=== PATIENT | male | born 1935 | race Caucasian/White ===

== ENCOUNTER → 2017-02-03 | Outpatient (CLI) | payer MEDICARE | LOC: COL.RAD 10:28 | DX: D47.2 Monoclonal gammopathy (principal); M85.80 Other specified disorders of bone density and structure, unspecified site ==

== ENCOUNTER → 2017-03-17 | Outpatient (CLI) | payer MEDICARE | LOC: COL.RAD 09:37 | DX: R59.0 Localized enlarged lymph nodes (principal); N40.0 Benign prostatic hyperplasia without lower urinary tract symptoms | CPT/HCPCS: Q9967 ==

== ENCOUNTER 2017-09-23 11:15 | Outpatient (RCR) | payer MEDICARE ==
[2017-10-09] MEDS ORDERED: ZOVIRAX400 MG PO (16:20)
[2017-10-09] MEDS ORDERED: TAZTIA120 (16:20)
[2017-10-09] MEDS ORDERED: ATIVAN 1MG T1 MG/TAB PO (16:21)
[2017-10-09] MEDS ORDERED: PREDNISONE 5MG5 MG PO (16:21)
[2017-10-09] MEDS ORDERED: STIOLTO RESPIMAT4 GM IH (16:21)
[2017-10-09] MEDS ORDERED: ZOFRAN8 MG PO (16:22)
[2017-10-13] MEDS ORDERED: ASPIRIN 81M81 MG/TA2 PO (09:58)
[2017-10-13] MEDS ORDERED: IPRATROPIUM BROM3 M1 IH (15:33)
[2017-10-13] MEDS ORDERED: COMBIRESP IH (15:33)
[2017-10-13] MEDS ORDERED: PREDNISONE10 MG PO (15:33)
== END 2017-11-22 | disposition home or self-care (01) ==
LOC: MKS.ESL.PT
DX: R53.0 Neoplastic (malignant) related fatigue (principal); R53.1 Weakness; R06.02 Shortness of breath; C88.0 Waldenstrom macroglobulinemia
CPT/HCPCS: G8978-GP; G8979-GP

== ENCOUNTER 2017-10-09 14:29 | Emergency (ER) | payer MEDICARE ==
[~2017-10-09] VITALS: Ht 175.3 cm; Wt 72.7 kg
[2017-10-09 14:31] VITALS: TEMP 97.5
[2017-10-09 15:08] LABS: BASO % 0.1 % (0.0-2.0); EOS # 0.1 (0.0-0.7); EOS % 1.2 % (0-4.0); GRAN # 6.2 (1.4-6.5); GRAN % 71.4 % (42.2-75.2); HEMATOCRIT 43.1 % (42.0-52.0); HEMOGLOBIN 14.5 g/dl (13.5-18.0); LYMPH # 1.2 (1.2-3.4); LYMPH % 14.4 % (20.0-51.0); MEAN CELL VOLUME 96 fl (80.0-100.0); MEAN CORPUSCULAR HEMOGLOBIN 32 pg (27.0-31.0); MEAN CORPUSCULAR HGB CONC 34 g/dl (33.0-37.0); MEAN PLATELET VOLUME 9.9 fl (7.4-10.4); MONO # 1.1 (0.1-0.6); MONO % 12.3 % (1.7-9.3); PLATELET COUNT 298 K/mm3 (130-400); RED BLOOD COUNT 4.47 M/mm3 (4.20-5.60); REDCELL DISTRIBUTION WIDTH-CV 13.6 % (11.5-14.5)
[2017-10-09 15:16] LABS: PROTHROMBIN TIME 11.2 SECONDS (9.7-12.8)
[2017-10-09 15:18] LABS: PARTIAL THROMBOPLASTIN TIME 28.8 SECONDS (26.0-37.0)
[2017-10-09 15:20] LABS: ALANINE AMINOTRANSFERASE 32 U/L (21-72); ALBUMIN 3.6 gm/dL (3.5-5.0); ALKALINE PHOSPHATASE 85 U/L (50-136); ANION GAP 8 mmol/L (7-16); AST,SGOT 23 U/L (15-37); BILIRUBIN,TOTAL 0.8 mg/dL (0.0-1.0); BLOOD UREA NITROGEN 21 mg/dL (9-20); CALCIUM 9.8 mg/dL (8.4-10.2); CARBON DIOXIDE 30 mmol/L (22-30); CHLORIDE 99 mmol/L (98-107); CREATININE, serum 1.17 mg/dL (0.66-1.25); GLUCOSE 90 mg/dL (74-106); POTASSIUM 4.1 mmol/L (3.4-5.0); SODIUM 137 mmol/L (137-145); TOTAL PROTEIN 8.1 gm/dL (6.4-8.2)
[2017-10-09 15:31] LABS: TROPONIN-I < 0.012 ng/mL (0.000-0.034)
[2017-10-09 15:38] LABS: ARTERIAL BLD GAS O2 SATURATION 95.4 % (92-100); ARTERIAL BLD GAS TCO2 CT 24.9; ARTERIAL BLOOD GAS BASE EXCESS 1.1 (-2-2); ARTERIAL BLOOD GAS HCO3 23.9 meq/L (22-26); ARTERIAL BLOOD GAS PCO2 32.8 mmHg (35-45); ARTERIAL BLOOD GAS PO2 79.3 mmHg (80-100); ARTERIAL BLOOD GAS pH 7.48 (7.35-7.45)
[2017-10-09] MEDS ORDERED: ZOVIRAX400 MG PO (16:20)
[2017-10-09] MEDS ORDERED: TAZTIA120 (16:20)
[2017-10-09] MEDS ORDERED: ATIVAN 1MG T1 MG/TAB PO (16:21)
[2017-10-09] MEDS ORDERED: PREDNISONE 5MG5 MG PO (16:21)
[2017-10-09] MEDS ORDERED: STIOLTO RESPIMAT4 GM IH (16:21)
[2017-10-09] MEDS ORDERED: ZOFRAN8 MG PO (16:22)
[2017-10-09 16:56] VITALS: BP 121/73; PULSE 65
== END 2017-10-09 16:57 | disposition home or self-care (01) ==
LOC: COL.ER 14:29
PROVIDERS: Family Medicine
DX: J44.9 Chronic obstructive pulmonary disease, unspecified (principal)
CPT/HCPCS: J2930

== ENCOUNTER 2017-10-13 09:49 | Emergency (ER) | payer MEDICARE ==
[~2017-10-13] VITALS: Ht 175.3 cm; Wt 72.7 kg
[~2017-10-13 09:49] MED LIST: ATIVAN 1MG T1 MG/TAB PO; PREDNISONE 5MG5 MG PO; STIOLTO RESPIMAT4 GM IH; TAZTIA120; ZOFRAN8 MG PO; ZOVIRAX400 MG PO
[2017-10-13 09:55] VITALS: TEMP 97.2
[2017-10-13] MEDS ORDERED: ASPIRIN 81M81 MG/TA2 PO (09:58)
[2017-10-13 10:30] LABS: BASO % 0.2 % (0.0-2.0); EOS # 0.1 (0.0-0.7); EOS % 0.9 % (0-4.0); GRAN % 71.2 % (42.2-75.2); HEMATOCRIT 43.3 % (42.0-52.0); HEMOGLOBIN 14.2 g/dl (13.5-18.0); LYMPH # 1.7 (1.2-3.4); LYMPH % 17.1 % (20.0-51.0); MEAN CELL VOLUME 98 fl (80.0-100.0); MEAN CORPUSCULAR HEMOGLOBIN 32 pg (27.0-31.0); MEAN CORPUSCULAR HGB CONC 33 g/dl (33.0-37.0); MEAN PLATELET VOLUME 9.3 fl (7.4-10.4); MONO % 9.6 % (1.7-9.3); PLATELET COUNT 408 K/mm3 (130-400); RED BLOOD COUNT 4.43 M/mm3 (4.20-5.60); REDCELL DISTRIBUTION WIDTH-CV 13.7 % (11.5-14.5)
[2017-10-13 10:36] LABS: PROTHROMBIN TIME 11.8 SECONDS (9.7-12.8)
[2017-10-13 10:39] LABS: PARTIAL THROMBOPLASTIN TIME 30.5 SECONDS (26.0-37.0)
[2017-10-13 10:48] LABS: ALANINE AMINOTRANSFERASE 26 U/L (21-72); ALBUMIN 3.6 gm/dL (3.5-5.0); ALKALINE PHOSPHATASE 86 U/L (50-136); ANION GAP 11 mmol/L (7-16); AST,SGOT 21 U/L (15-37); BILIRUBIN,TOTAL 0.5 mg/dL (0.0-1.0); BLOOD UREA NITROGEN 21 mg/dL (9-20); CALCIUM 9.8 mg/dL (8.4-10.2); CARBON DIOXIDE 28 mmol/L (22-30); CHLORIDE 100 mmol/L (98-107); CREATININE, serum 1.27 mg/dL (0.66-1.25); GLUCOSE 123 mg/dL (74-106); LIPASE 72 U/L (23-300); POTASSIUM 3.6 mmol/L (3.4-5.0); SODIUM 139 mmol/L (137-145); TOTAL PROTEIN 7.7 gm/dL (6.4-8.2)
[2017-10-13 10:52] LABS: TROPONIN-I < 0.012 ng/mL (0.000-0.034)
[2017-10-13] MEDS ORDERED: IPRATROPIUM BROM3 M1 IH (15:33)
[2017-10-13] MEDS ORDERED: PREDNISONE10 MG PO (15:33)
[2017-10-13] MEDS ORDERED: COMBIRESP IH (15:33)
[2017-10-13 16:14] VITALS: BP 147/89; PULSE 83
== END 2017-10-13 16:35 | disposition other institution (70) ==
LOC: COL.ER 09:49
PROVIDERS: Emergency Medicine
DX: J44.1 Chronic obstructive pulmonary disease with (acute) exacerbation (principal); I48.91 Unspecified atrial fibrillation; C85.90 Non-Hodgkin lymphoma, unspecified, unspecified site; Z79.82 Long term (current) use of aspirin
CPT/HCPCS: J2930; J7030; Q9967

== ENCOUNTER 2017-10-21 09:13 | Emergency (ER) | payer MEDICARE ==
[~2017-10-21] VITALS: Ht 175.3 cm; Wt 72.7 kg
[~2017-10-21 09:13] MED LIST changes: +ASPIRIN 81M81 MG/TA2 PO; +COMBIRESP IH; +IPRATROPIUM BROM3 M1 IH; +PREDNISONE10 MG PO
[2017-10-21 12:51] VITALS: BP 126/98; PULSE 90; TEMP 98.5
== END 2017-10-21 13:00 | disposition home or self-care (01) ==
LOC: COL.ER 09:13
DX: J44.1 Chronic obstructive pulmonary disease with (acute) exacerbation (principal); I48.91 Unspecified atrial fibrillation; Z79.82 Long term (current) use of aspirin; Z85.72 Personal history of non-Hodgkin lymphomas

== ENCOUNTER → 2017-11-01 | Outpatient (CLI) | payer MEDICARE | LOC: COL.VAS 13:15 | DX: R22.42 Localized swelling, mass and lump, left lower limb (principal); D47.2 Monoclonal gammopathy ==

== ENCOUNTER → 2018-07-07 | Outpatient (CLI) | payer MEDICARE ==
[~2018-07-07] MED LIST changes: +ACULAR 5 ML5 ML OD; +FLOXIN OTIC DROP5 ML OD; +OMNICEF 300MG300 MG PO; +PERFOROMIS20 MCG/2 M IH; +PREDFORTE5ML OS; +PREDNISONE20 MG PO; +PULMICORT180 MCG/Ac IH; +SENOKOT S 50 MG1 TAB PO; +ZITHROMAX Z PA250 MG PO; +ZITHROMAX500 M2 PO
[2018-07-07 14:44] LABS: ARTERIAL BLD GAS O2 SATURATION 95.4 % (92-100); ARTERIAL BLD GAS TCO2 CT 25.7; ARTERIAL BLOOD GAS BASE EXCESS 2.1 (-2-2); ARTERIAL BLOOD GAS HCO3 24.7 meq/L (22-26); ARTERIAL BLOOD GAS PCO2 32.7 mmHg (35-45); ARTERIAL BLOOD GAS PO2 75.4 mmHg (80-100)
== END ==
LOC: COL.PUL 14:04
PROVIDERS: Internal Medicine Pulmonary Disease
DX: R06.02 Shortness of breath (principal)

== ENCOUNTER → 2018-07-24 | Outpatient (CLI) | payer MEDICARE | LOC: COL.RAD 13:14 | DX: J44.9 Chronic obstructive pulmonary disease, unspecified (principal) ==

== ENCOUNTER 2019-03-13 07:00 | Day surgery (SDC) | payer MEDICARE ==
[2019-03-13] VITALS (11 sets, daily range): BP systolic 100–136; BP diastolic 51–98; PULSE 47–84; TEMP 97.2–99.2
[~2019-03-13] VITALS: Ht 175.3 cm; Wt 67.2 kg
[~2019-03-13 07:00] MED LIST changes: -TAZTIA120; +TAZTIA120 PO
[2019-03-13] MEDS ORDERED: TRELEGY ELLIPT1 EACH IH (07:27)
[2019-03-13] MEDS ORDERED: GENTAMICIN I40 MG/ML NAS (07:28)
[2019-03-13] MEDS ORDERED: IPRATROPIUM BROM3 M1 IH (07:32)
--- NOTE | 2019-03-13 11:30 | NUR ---
Patient is to the floor from surgery. His is with him. He denies pain and nausea. Oriented patient and family to room. Patients urine is yellow and clear, no clots or blood noted. CBI came up with patient at a slow rate. Explained how the food delivery service works. Patient is on oxygen at 3l/min. He stated he wears it at night when he sleeps. No other changes at this time. Call light within reach.
--- NOTE | 2019-03-13 19:20 | NUR ---
Patient had some pain earlier after his spinal wore off. He also started having more blood and clots in his urine. Irrigated to make sure there was no clots, had a few small clots returned. His urine continues to be red to light pink. He denies spasms or pain to his bladder. He stated having some burning to his penis. Ramires is secured and a few clots are in the bag at this time. Patient is drinking fluids and doing well otherwise. He is up walking with Frances the WELFARE SERVICE AIDE. No other changes at this time. Call light within reach.
--- NOTE | 2019-03-13 21:50 | NUR ---
REPORT RECEIVED BY DAY SHIFT NURSE, ARCELIA DEWEY. CBI RATE MODERATE WITH CEDILLO OUTPUT LIGHT RED WITH SMALL AMOUNT OF SEDIMENT OBSERVED IN DD TUBING WITH NO CLOTS OBSERVED. PATIENT REPORTS BURNING DISCOMFORT TO END OF PENIS AND DENIES RECTAL PRESSURE, BLADDER PRESSURE OR SHARP PAIN TO END OF PENIS CURRENTLY. DENIES NAUSEA/DIZZINESS WHEN UP FOR AMBULATING. RESTING IN BED WITH CALL LIGHT WITHIN PATIENT'S REACH.
[2019-03-14 04:07] VITALS: BP 109/74; PULSE 66; TEMP 98.8
--- NOTE | 2019-03-14 06:30 | NUR ---
DR DOWELL CALLED FOR PATIENT'S STATUS UPDATE, ORDERS GIVEN TO INSTILL 300ML CBI SOLUTION AND REMOVE CATHETER AND FOLLOW 6 CUP ROUTINE FOR VOIDING AND TO EXPECT DOCTOR TO ROUND AROUND LUNCH. INFORMED PATIENT OF DR BAUTISTA TO INSTILL CBI SOLUTION AND REMOVE CATHETER AND WHEN TO EXPECT DR DOWELL FOR ROUNDS. NO OTHER NEEDS REPORTED.
--- NOTE | 2019-03-14 07:00 | NUR ---
REPORT GIVEN TO DAY SHIFT NURSERAUL RN. PATIENT WITH NO COMPLAINTS OR NEEDS REPORTED. CALL LIGHT/WATER WITHIN PATIENT'S REACH.
[2019-03-14 07:32] VITALS: BP 105/64; PULSE 77; TEMP 97.7
--- NOTE | 2019-03-14 09:55 | NUR ---
Patient independent in room. 6 bottle routine started. voided x2 pink tinged output. tolerated pack prime & removal well. Int. tolerating diet. continues with home cpod medication regiment, he brought from home. Ricardo villalobos
--- NOTE | 2019-03-14 10:41 | NUR ---
Initial visit; Patient thanked Lockstitch Binder for looking in on him and offering Spiritual Care. Patient expressed how well he has been taken care of here at our hospital and expressed how impressed he is with the professionalism he has experienced with the entire staff.
--- NOTE | 2019-03-14 11:14 | NUR ---
Language Pathologist met with patient to discuss discharge planning. Patient lives in [place] with his , Jack (ph#[phone]). Yasmeen sees Dr. Talamantes for primary care and obtains medications from [facility] with no difficulties. Patient has oxygen needs met by [employer] and reports he has an oxygen generator at home. Patient is independent with ADLS. Patient has Advance Directives complete but does not have copy on file at this hospital. Patient plans to return home upon discharge.
[2019-03-14 11:31] VITALS: BP 152/89; PULSE 58; TEMP 97.6
--- NOTE | 2019-03-14 12:46 | NUR ---
Patient ready for discharge. Dr. Tamayo rounded. Orders obtained. He continues to void light pink urine without difficulty. He did well with lunch, denies pain. Iv DC. Discharge paperwork reviewed. Home med list discussed with last dose taken. Diet & activity discussed. to take him home. Deny questions and concerns.
--- NOTE | 2019-03-14 13:37 | NUR ---
PATIENT WHEELED OUT WITH ALL BELONGINGS.
== END 2019-03-14 13:38 | disposition home or self-care (01) ==
LOC: SDCO 07:00 → SURG 11:18 → SDCO 03-14 13:38
DX: N40.1 Benign prostatic hyperplasia with lower urinary tract symptoms (principal); N13.8 Other obstructive and reflux uropathy; R33.8 Other retention of urine; N21.0 Calculus in bladder; I48.91 Unspecified atrial fibrillation; Z79.82 Long term (current) use of aspirin; Z79.899 Other long term (current) drug therapy; Z85.828 Personal history of other malignant neoplasm of skin; E78.00 Pure hypercholesterolemia, unspecified; Z87.891 Personal history of nicotine dependence; F32.9 Major depressive disorder, single episode, unspecified; Z85.72 Personal history of non-Hodgkin lymphomas; Z80.9 Family history of malignant neoplasm, unspecified; Z82.49 Family history of ischemic heart disease and other diseases of the circulatory system; C88.0 Waldenstrom macroglobulinemia; J43.9 Emphysema, unspecified
CPT/HCPCS: OP; A9284; J0690; J2250; J2704; J3010; J7120

== ENCOUNTER → 2019-06-18 | Outpatient (CLI) | payer MEDICARE ==
[~2019-06-18] MED LIST changes: +GENTAMICIN I40 MG/ML NAS; +TRELEGY ELLIPT1 EACH IH
== END ==
LOC: COL.RAD 11:07
DX: Z01.818 Encounter for other preprocedural examination (principal); J44.9 Chronic obstructive pulmonary disease, unspecified
CPT/HCPCS: A9540

== ENCOUNTER → 2020-06-05 | Outpatient (CLI) | payer MEDICARE ==
[2020-06-05 07:41] LABS: ARTERIAL BLOOD GAS BASE EXCESS 1.5 (-2-2); ARTERIAL BLOOD GAS HCO3 25.6 meq/L (22-26); ARTERIAL BLOOD GAS PCO2 38.7 mmHg (35-45); ARTERIAL BLOOD GAS PO2 96.1 mmHg (80-100); ARTERIAL BLOOD GAS pH 7.44 (7.35-7.45)
[2020-06-05 07:42] LABS: ARTERIAL BLD GAS O2 SATURATION 97.7 % (92-100); ARTERIAL BLD GAS TCO2 CT 26.8
== END ==
LOC: COL.PUL 06:52
PROVIDERS: Internal Medicine Pulmonary Disease
DX: J44.9 Chronic obstructive pulmonary disease, unspecified (principal)

== ENCOUNTER 2020-09-01 14:00 | Outpatient (RCR) | payer MEDICARE | END 2020-09-01 17:33 | disposition home or self-care (01) | LOC: MKS.ESL.PT 14:00 | DX: J44.9 Chronic obstructive pulmonary disease, unspecified (principal); Z99.81 Dependence on supplemental oxygen ==

== ENCOUNTER 2022-06-03 11:50 | Emergency (ER) | payer MEDICARE ==
[~2022-06-03] VITALS: Ht 175.3 cm; Wt 68.2 kg
[2022-06-03 12:00] VITALS: TEMP 98.1
[2022-06-03 12:24] LABS: BASO # 0.1 K/mm3 (0.0-0.2); BASO % 0.4 % (0.0-2.0); EOS # 0.1 K/mm3 (0.0-0.7); EOS % 0.9 % (0.0-4.0); GRAN # 9.1 K/mm3 (1.4-6.5); GRAN % 67.3 % (42.2-75.2); HEMATOCRIT 49.9 % (42.0-52.0); HEMOGLOBIN 15.7 g/dl (13.5-18.0); LYMPH % 22.4 % (20.0-51.0); MEAN CELL VOLUME 101 fl (80.0-100.0); MEAN CORPUSCULAR HEMOGLOBIN 32 pg (27-31); MEAN CORPUSCULAR HGB CONC 32 g/dl (33.0-37.0); MEAN PLATELET VOLUME 9.4 fl (7.4-10.4); MONO # 1.2 K/mm3 (0.1-0.6); MONO % 8.6 % (1.7-9.3); PLATELET COUNT 405 K/mm3 (130-400); RED BLOOD COUNT 4.96 M/mm3 (4.20-5.60); REDCELL DISTRIBUTION WIDTH-CV 12.3 % (11.5-14.5)
[2022-06-03 12:25] LABS: INR 1.4 (0.8-3.0)
[2022-06-03 12:44] LABS: ALANINE AMINOTRANSFERASE 51 U/L (0-55); ALBUMIN 4.3 gm/dL (3.4-4.8); ALKALINE PHOSPHATASE 76 U/L (40-150); ANION GAP 13 mmol/L (7-16); AST,SGOT 29 U/L (5-34); BLOOD UREA NITROGEN 19 mg/dL (8-26); CALCIUM 11.1 mg/dL (8.4-10.2); CARBON DIOXIDE 27 mmol/L (23-31); CHLORIDE 103 mmol/L (98-107); CREATININE, serum 1.26 mg/dL (0.72-1.25); GLUCOSE 98 mg/dL (70-99); POTASSIUM 4.5 mmol/L (3.5-4.5); SODIUM 143 mmol/L (136-145); TOTAL PROTEIN 8.8 gm/dL (6.2-8.1)
[2022-06-03 12:47] LABS: TROPONIN-I < 0.010 ng/mL (0.00-0.033)
[2022-06-03] MEDS ORDERED: AMOXICILLIN 8751 TAB PO (13:50)
[2022-06-03 14:03] LABS: BILIRUBIN,TOTAL 1.1 mg/dL (0.2-1.2)
[2022-06-03 14:59] VITALS: BP 119/83; PULSE 86
== END 2022-06-03 15:00 | disposition home or self-care (01) ==
LOC: COL.ER 11:50
PROVIDERS: Physician Assistant
DX: J44.0 Chronic obstructive pulmonary disease with (acute) lower respiratory infection (principal); J18.9 Pneumonia, unspecified organism; J44.1 Chronic obstructive pulmonary disease with (acute) exacerbation; R00.2 Palpitations; I48.0 Paroxysmal atrial fibrillation; D72.829 Elevated white blood cell count, unspecified; Z79.01 Long term (current) use of anticoagulants; Z86.16 Personal history of COVID-19; Z99.81 Dependence on supplemental oxygen

== ENCOUNTER → 2023-02-08 | Outpatient (RCR) | payer MEDICARE ==
[~2023-02-08] MED LIST changes: +AMOXICILLIN 8751 TAB PO; +ELIQUIS 2.5 PO; +K-DUR 10 MEQ T10 MEQ; +LASIX 20MG TABL20 MG PO; +OXY IR5 MG PO
== END | disposition home or self-care (01) ==
LOC: COL.CR
DX: J44.9 Chronic obstructive pulmonary disease, unspecified (principal)

== ENCOUNTER 2023-03-15 13:00 | Outpatient (RCR) | payer MEDICARE | END 2023-04-10 | disposition home or self-care (01) | LOC: COL.CR | DX: J44.9 Chronic obstructive pulmonary disease, unspecified (principal) ==

== ENCOUNTER 2023-04-14 08:51 | Emergency (ER) | payer MEDICARE ==
[~2023-04-14] VITALS: Ht 175.3 cm; Wt 65.9 kg
[2023-04-14 10:30] VITALS: BP 160/93; PULSE 93
== END 2023-04-14 10:37 | disposition home or self-care (01) ==
LOC: COL.ER 08:51
DX: R04.0 Epistaxis (principal); I48.91 Unspecified atrial fibrillation; Z79.02 Long term (current) use of antithrombotics/antiplatelets; Z79.01 Long term (current) use of anticoagulants; Z99.81 Dependence on supplemental oxygen; Z87.891 Personal history of nicotine dependence

== ENCOUNTER 2023-04-18 10:22 | Emergency (ER) | payer MEDICARE ==
[~2023-04-18] VITALS: Ht 175.3 cm; Wt 65.9 kg
[2023-04-18 10:24] VITALS: TEMP 97.8
[2023-04-18] MEDS ORDERED: Albuterol 0.083% Neb Soln 2.5 MG/3 ML UD IH ONE (11:15)
[2023-04-18] MEDS ORDERED: Albuterol/Ipratropium 3 MG-0.5 MG/3 ML Neb Soln IH SCH (11:15)
[2023-04-18] MEDS ORDERED: dexAMETHasone 4 MG TAB PO ONE (11:15)
[2023-04-18 11:48] LABS: BASO % 0.2 % (0.0-2.0); EOS % 0.1 % (0.0-4.0); GRAN % 87.9 % (42.2-75.2); HEMOGLOBIN 12.8 g/dl (13.5-18.0); LYMPH # 0.8 K/mm3 (1.2-3.4); MEAN CELL VOLUME 98 fl (80.0-100.0); MEAN CORPUSCULAR HEMOGLOBIN 31 pg (27-31); MEAN CORPUSCULAR HGB CONC 32 g/dl (33.0-37.0); MEAN PLATELET VOLUME 9.4 fl (7.4-10.4); MONO # 1.4 K/mm3 (0.1-0.6); MONO % 7.3 % (1.7-9.3); PLATELET COUNT 314 K/mm3 (130-400); RED BLOOD COUNT 4.07 M/mm3 (4.20-5.60); REDCELL DISTRIBUTION WIDTH-CV 12.6 % (11.5-14.5)
[2023-04-18 12:05] LABS: ALANINE AMINOTRANSFERASE 18 U/L (0-55); ALBUMIN 3.6 gm/dL (3.4-4.8); ALKALINE PHOSPHATASE 75 U/L (40-150); ANION GAP 10 mmol/L (7-16); AST,SGOT 19 U/L (5-34); BILIRUBIN,TOTAL 0.5 mg/dL (0.2-1.2); BLOOD UREA NITROGEN 20 mg/dL (8-26); CALCIUM 10.5 mg/dL (8.4-10.2); CARBON DIOXIDE 25 mmol/L (23-31); CHLORIDE 105 mmol/L (98-107); CREATININE, serum 1.07 mg/dL (0.72-1.25); GLUCOSE 101 mg/dL (70-99); SODIUM 140 mmol/L (136-145); TOTAL PROTEIN 7.4 gm/dL (6.2-8.1)
[2023-04-18 12:13] LABS: TROPONIN-I < 0.010 ng/mL (0.00-0.033)
[2023-04-18] MEDS ORDERED: AMOXICILLIN 8751 TAB PO (13:12)
[2023-04-18] MEDS ORDERED: PREDNISONE20 MG PO (13:12)
[2023-04-18] MEDS ORDERED: ZITHROMAX Z PA250 MG PO (13:12)
[2023-04-18 15:43] VITALS: BP 122/93; PULSE 93
--- NOTE | 2023-04-18 16:33 | NUR ---
Embossing Toolsetter met with patient and his , Jack at bedside as they are concerned about patient returning home from the ED today. Jack advised they live in Independent Living apartment at [facility] and that they spoke with Jaymie Art at [facility] about going to [facility] for a skilled stay, however they are full. Patient has a walker available at home and has home oxygen set up through [employer]. ED Physician is at bedside and advised patient does not meet admission criteria. VELASQUEZ advised options are SNF at another facility or home with Home Health services. Patient is agreeable to services with [facility]. VELASQUEZ contacted Castillo at [facility] and faxed referral. VELASQUEZ provided update to MACO Wagner-CM at [facility] and Jaymie at [facility]. VELASQUEZ provided [facility] Transport's number to patient for a ride home.
== END 2023-04-18 15:44 | disposition home or self-care (01) ==
LOC: COL.ER 10:22
PROVIDERS: Emergency Medicine
DX: R04.0 Epistaxis (principal); J44.1 Chronic obstructive pulmonary disease with (acute) exacerbation; E87.5 Hyperkalemia; D72.829 Elevated white blood cell count, unspecified; I48.91 Unspecified atrial fibrillation; Z79.01 Long term (current) use of anticoagulants; Z99.81 Dependence on supplemental oxygen; Z79.899 Other long term (current) drug therapy; Z87.891 Personal history of nicotine dependence
CPT/HCPCS: J8540

== ENCOUNTER 2023-05-11 14:56 | Emergency (ER) | payer MEDICARE ==
[~2023-05-11] VITALS: Ht 177.8 cm; Wt 65.9 kg
[2023-05-11 14:58] VITALS: TEMP 96.1
[2023-05-11 15:43] LABS: BASO % 0.3 % (0.0-2.0); GRAN # 10.9 K/mm3 (1.4-6.5); GRAN % 73.4 % (42.2-75.2); LYMPH # 2.8 K/mm3 (1.2-3.4); LYMPH % 19.2 % (20.0-51.0); MEAN CELL VOLUME 97 fl (80.0-100.0); MEAN CORPUSCULAR HEMOGLOBIN 32 pg (27-31); MEAN CORPUSCULAR HGB CONC 33 g/dl (33.0-37.0); MEAN PLATELET VOLUME 9.4 fl (7.4-10.4); MONO % 6.8 % (1.7-9.3); PLATELET COUNT 400 K/mm3 (130-400); RED BLOOD COUNT 4.44 M/mm3 (4.20-5.60); REDCELL DISTRIBUTION WIDTH-CV 12.4 % (11.5-14.5)
[2023-05-11 15:44] LABS: INR 1.2 (0.8-3.0); PROTHROMBIN TIME 12.7 SECONDS (9.7-12.8)
[2023-05-11 15:56] LABS: CALCIUM 10.9 mg/dL (8.4-10.2); CREATININE, serum 1.4 mg/dL (0.72-1.25); TOTAL PROTEIN 7.9 gm/dL (6.2-8.1)
[2023-05-11 16:43] LABS: BILIRUBIN,TOTAL 0.6 mg/dL (0.2-1.2)
[2023-05-11 17:00] VITALS: BP 126/87; PULSE 89
== END 2023-05-11 18:47 | disposition home or self-care (01) ==
LOC: COL.ER 14:56
PROVIDERS: Family Medicine
DX: R04.0 Epistaxis (principal); I48.91 Unspecified atrial fibrillation; E87.5 Hyperkalemia; Z79.01 Long term (current) use of anticoagulants; Z87.891 Personal history of nicotine dependence

== ENCOUNTER 2023-09-29 13:27 | Inpatient (IN) | payer MEDICARE ==
[~2023-09-29] VITALS: Ht 175.3 cm; Wt 65.8 kg
[~2023-09-29 13:27] MED LIST changes: -ELIQUIS 2.5 PO; +ELIQUIS 5MG PO; -K-DUR 10 MEQ T10 MEQ; +K-DUR 10 MEQ T10 MEQ PO
[2023-09-29] MEDS ORDERED: Albuterol/Ipratropium 3 MG-0.5 MG/3 ML Neb Soln IH ONE ×2 (13:45→20:15)
[2023-09-29 13:54] LABS: BASO % 0.3 % (0.0-2.0); EOS % 0.1 % (0.0-4.0); GRAN # 11.3 K/mm3 (1.4-6.5); GRAN % 86.6 % (42.2-75.2); HEMATOCRIT 46.8 % (42.0-52.0); LYMPH % 7.6 % (20.0-51.0); MEAN CELL VOLUME 92 fl (80.0-100.0); MEAN CORPUSCULAR HEMOGLOBIN 29 pg (27-31); MEAN CORPUSCULAR HGB CONC 32 g/dl (33.0-37.0); MEAN PLATELET VOLUME 9.1 fl (7.4-10.4); MONO # 0.6 K/mm3 (0.1-0.6); MONO % 4.8 % (1.7-9.3); PLATELET COUNT 320 K/mm3 (130-400); RED BLOOD COUNT 5.11 M/mm3 (4.20-5.60); REDCELL DISTRIBUTION WIDTH-CV 14.1 % (11.5-14.5)
[2023-09-29 14:17] LABS: ALANINE AMINOTRANSFERASE 18 U/L (0-55); ALBUMIN 3.6 g/dL (3.4-4.8); ALKALINE PHOSPHATASE 74 U/L (40-150); ANION GAP 11 mmol/L (7-16); AST,SGOT 15 U/L (5-34); BLOOD UREA NITROGEN 16 mg/dL (8-26); CHLORIDE 105 mEq/L (98-107); CREATININE, serum 1.21 mg/dL (0.72-1.25); GLUCOSE 127 mg/dL (70-99); POTASSIUM 4.7 mEq/L (3.5-4.5); SODIUM 140 mEq/L (136-145); TOTAL PROTEIN 7.1 g/dl (6.2-8.1)
[2023-09-29 14:20] LABS: INR 1.2 (0.8-3.0); PROTHROMBIN TIME 12.6 SECONDS (9.7-12.8)
[2023-09-29 14:22] LABS: TROPONIN-I 0.073 ng/mL (0.00-0.033)
[2023-09-29] MEDS ORDERED: PREDNISONE10 MG PO (14:49)
[2023-09-29] MEDS ORDERED: YUPELRI175 MCG/3 INH (14:54)
[2023-09-29] MEDS ORDERED: PULMICORT0.5 MG/2 M IH (14:54)
[2023-09-29] MEDS ORDERED: BROVANA15 MCG/2 M INH (14:54)
[2023-09-29 15:13] LABS: BILIRUBIN,TOTAL < 1.0 mg/dL (0.2-1.2)
[2023-09-29 17:03] VITALS: BP 160/110; PULSE 82; TEMP 97.6
[2023-09-29] MEDS ORDERED: LASIX 20MG TABL20 MG PO (17:06)
[2023-09-29] MEDS ORDERED: Acetaminophen 325 MG TAB PO PRN (17:15)
[2023-09-29] MEDS ORDERED: Albuterol/Ipratropium 3 MG-0.5 MG/3 ML Neb Soln IH PRN (17:15)
[2023-09-29] MEDS ORDERED: Ondansetron 4 MG/2 ML VIAL IV PRN (17:15)
--- NOTE | 2023-09-29 17:37 | NUR ---
Pt arrived to medical floor from ED. Report received from ED RN Pat by phone. Admission assessment and intake completed. Pt is resting in bed awake, alert and oriented x4. Pt is having complaints of SOA. O2 in place at 2L NC with pt purse lip breathing. Pt states that when having to answer questions he becomes more short of breath. Home medications not reviewed at this time as pt is unaware of medication times and doses, is to bring in list tomorrow AM. Minor scabs noted to be scattered along BUE. Bilateral feet scaling/dry and cool to touch. Oriented pt to room, call light, and bathroom. Pt denies pain rating 0/10. Telemetry in place. Dr. Wise at bedside with patient and notified of BP 160/110 and critcal troponin of 0.435. Pt has no request at this time. Call light within reach.
[2023-09-29] MEDS ORDERED: methylPREDNISolone Sod Succ 125 MG/2 ML VIAL IV ONE (17:45)
[2023-09-29] MEDS ORDERED: hydrALAZINE 20 MG/ML 1 ML VIAL IV PRN ×2 (18:00)
[2023-09-29] MEDS ORDERED: Albuterol/Ipratropium 3 MG-0.5 MG/3 ML Neb Soln IH SCH (19:00)
[2023-09-29] MEDS ORDERED: Formoterol Neb Soln 20 MCG/2 ML UD IH SCH (19:00)
[2023-09-29] MEDS ORDERED: Arformoterol 15 MCG **** subs to Formoterol 20 MCG IH SCH (19:00)
[2023-09-29 19:14] LABS: ARTERIAL BLD GAS TCO2 CT 22.6; ARTERIAL BLOOD GAS BASE EXCESS -3.3 (-2-2); ARTERIAL BLOOD GAS HCO3 21.4 meq/L (22-26); ARTERIAL BLOOD GAS PCO2 37.9 mmHg (35-45); ARTERIAL BLOOD GAS pH 7.37 (7.35-7.45)
[2023-09-29 19:15] LABS: ARTERIAL BLOOD GAS PO2 402.5 mmHg (80-100)
[2023-09-29] MEDS ORDERED: Amiodarone 450 MG in D5W Excel 250 ML IV SCH (19:15)
[2023-09-29] MEDS ORDERED: LORazepam 2 MG/ML 1 ML VIAL SQ PRN (19:30)
[2023-09-29] MEDS ORDERED: Morphine 4 MG/ML VIAL IV ONE ×2 (19:30→19:45)
[2023-09-29] MEDS ORDERED: Scopolamine 1 MG Delivered 3-Day PATCH TD SCH (19:30)
[2023-09-29] MEDS ORDERED: Morphine 4 MG/ML VIAL IV PRN (19:30)
[2023-09-29] MEDS ORDERED: Carboxymethylcellulose PF Ophth 0.4 ML DROPPERETTE OP PRN (19:30)
[2023-09-29] MEDS ORDERED: Morphine Oral Concentrate 20 MG/ML UD SL PRN (19:30)
[2023-09-29] MEDS ORDERED: LORazepam 2 MG/ML 1 ML VIAL IV PRN (19:30)
--- NOTE | 2023-09-29 19:58 | NUR ---
Approximately 1830 [facility] Alejandra notified this nurse that pt was having increased SOA. This nurse assessed pt and pt was having rapid breathes with retractions. O2 sat was 96% on 2L NC but given that patient was using pursed lip breathing stating he felt he could not breath this nurse tried a oxymask at 2L. Oxymask was unsuccessful then pt was switched back to 2L NC. Pt heart rate was ranging approximately from 140s-160. Charge nurse Estee was at bedside and instructed this nurse to call RT for assistance. RT Melonie was notified by phone and came to intiate interventions with Duoneb treatment. Pt stated that he did not feel the duoneb treatment was helping and this nurse called a CAT call to ICU. Two ICU charge nurses came to bedside with RT and Dr. Wise and medical charge nurses Chacha and Estee. Dr. Wise ordered medical interventions and pt stated "Kill me". Dr. Wise then discussed comfort care measures and pt was agreeable. Pt notified by phone of pt condition. Interventions discontinued and pt now on comfort care with at bedside.
--- NOTE | 2023-09-29 20:30 | NUR ---
PT COMFORTABLE RESTING IN BED, UNLABORED RESPR AT THIS TIME. PT GIVEN MEDICATIONS FOR COMFORT PER ORDERS. OF PATIENT IS VERY ANXIOUS, ASKING A LOT OF QUESTIONS. WHEN I ASKED THE PT IF I COULD CLEAN HIM UP HE YELLED AT ME "I WANT TO , WOULD YOU JUST GIVE ME THE SHOT AND PUT ME OUT", FROM WHAT I UNDERSTOOD HE WAS SPEAKING OF [place] AND PT WAS EDUCATED THAT WAS NOT LEGAL IN [place], PT THEN CLOSED HIS EYES AND ASKED TO BE LEFT ALONE. I RESPECTED HIS WISHES.
[2023-09-29] MEDS ORDERED: Apixaban 5 MG TABLET PO SCH (21:00)
[2023-09-29] MEDS ORDERED: Atorvastatin 80 MG TAB PO SCH (21:00)
[2023-09-29] MEDS ORDERED: dilTIAZem CD (24-HR) 120 MG CAP PO SCH (21:00)
--- NOTE | 2023-09-30 00:30 | NUR ---
PROVIDER NOTIFIED OF PT SCHEDULED HOME MEDS NOT ORDERED DISCONTINUED R/T PT BEING ON COMFORT CARE . RESPONSE WAS WHATEVER THE PT AND FAMILY WOULD LIKE TO DO IS FINE WITH HER, TORB FROM ADAL ENRIQUE.
--- NOTE | 2023-09-30 00:31 | NUR ---
RT CALLED BY RN DUE TO PT BEING SOB AND RETRACTING. UPON ARRIVE PT WAS VISIBLY IN RESPIRATORY DISTRESS. PT WAS INSPO./EXPO. WHEEZING, PT DID NOT ESTEBAN DUONEB TX. DR AT BEDSIDE, ORDERED ABG, BIPA, AND EKG ON. ALL PLACED/OBTANED PT. RESULT GIVEN TO DR, FIO2 TITRATED TO 30% FRM 100%. RT CALLED ABOUT 40 MINS. LATER TO TAKE PT OFF BIPAP MASK AND PLACE ON 2L/NC FOR COMFORT.
[2023-09-30] MEDS ORDERED: Amiodarone 450 MG in D5W Excel 250 ML IV SCH ×3 (01:21→17:00)
[2023-09-30 04:53] VITALS: BP 121/77; PULSE 133; TEMP 97.9
--- NOTE | 2023-09-30 06:06 | NUR ---
PT C/O OF AIR HUNGER AND SAYING "I CANT BREATHE" , PROVIDER ASKED BY THIS NURSE WHETHER OR NOT TO GIVE MEDS AND WHETHER OT NOT TO DC LABS. VORB THAT I COUL DC ALL PT LABS TODAY AND TO LET THE FAMILY AND PT DECIDE ON WHETHER THEY WOULD LIKE TO CONTINUE GIVING TH EPT HIS REGULAR HOME MEDS. THEY PT HEARING AIDES AND PHONE WERE SENT HOME WITH OF PT. PT HAS BEEN MADE COMFORTABLE POSSIBLE WITH PRESCRIBED MEDICATIONS FOR COMFORT. PT AND THIS NURSE SPOKE TO SON OF PT THIS MORNING , PT IS AWARE HIS SON WILL BE COMING TO VISIT HIM LATER TODAY FROM [place]. RT ALSO NOTIFIED THAT THE PT WOULD LIKE A [facility] TX R/T SOA. CALL LIGHT WITHIN REACH. CEDILLO CATHETER TO DEPENDENT DRAINAGE, CLEAR YELLOW DRAINAGE. FALL PRECAUTIONS IN PLACE.
[2023-09-30 07:58] VITALS: BP 104/68; PULSE 79; TEMP 98.3
--- NOTE | 2023-09-30 08:50 | NUR ---
Call received from Dr. Wise stating we will treat patient for COPD Exac and not comfort care for now.
[2023-09-30] MEDS ORDERED: Budesonide Neb Susp 0.25 MG/2 ML AMP IH SCH (09:00)
[2023-09-30] MEDS ORDERED: predniSONE 20 MG TAB PO SCH (09:00)
[2023-09-30] MEDS ORDERED: Furosemide 20 MG TAB PO SCH (09:00)
[2023-09-30] MEDS ORDERED: dexAMETHasone 10 MG/ML VIAL IV SCH (09:00)
[2023-09-30] MEDS ORDERED: Morphine 4 MG/ML VIAL IV PRN (09:00)
[2023-09-30] MEDS ORDERED: Tiotropium 2.5 MCG Respimat MDI IH SCH (09:00)
[2023-09-30 09:30] LABS: BASO % 0.1 % (0.0-2.0); GRAN # 13.4 K/mm3 (1.4-6.5); GRAN % 87.8 % (42.2-75.2); HEMATOCRIT 46.1 % (42.0-52.0); LYMPH % 6.6 % (20.0-51.0); MEAN CELL VOLUME 89 fl (80.0-100.0); MEAN CORPUSCULAR HEMOGLOBIN 29 pg (27-31); MEAN CORPUSCULAR HGB CONC 33 g/dl (33.0-37.0); MEAN PLATELET VOLUME 9.2 fl (7.4-10.4); MONO # 0.8 K/mm3 (0.1-0.6); MONO % 4.9 % (1.7-9.3); PLATELET COUNT 371 K/mm3 (130-400); RED BLOOD COUNT 5.17 M/mm3 (4.20-5.60); REDCELL DISTRIBUTION WIDTH-CV 14.4 % (11.5-14.5)
[2023-09-30 09:54] LABS: CALCIUM 11.1 mg/dL (8.4-10.2); CREATININE, serum 1.43 mg/dL (0.72-1.25); MAGNESIUM 2.1 mg/dL (1.6-2.6); POTASSIUM 5.2 mEq/L (3.5-4.5)
[2023-09-30 10:06] LABS: TROPONIN-I 1.221 ng/mL (0.00-0.033)
--- NOTE | 2023-09-30 10:11 | NUR ---
[address] Wise to report patient showing HR 140s 150s. VORB EKG. Medications given for this morning. Pt not feeling any symptom. PT states his HR is like that sometimes. EKG done AFIB RVR. Dr. Wise aware. Awaiting for futher orders.
[2023-09-30] MEDS ORDERED: dilTIAZem CD (24-HR) 120 MG CAP PO ONE (12:15)
[2023-09-30 13:00] VITALS: BP_SYST 104
[2023-09-30] MEDS ORDERED: Albuterol/Ipratropium 3 MG-0.5 MG/3 ML Neb Soln IH PRN (13:15)
[2023-09-30] MEDS ORDERED: NS 500 ML IV ONE ×2 (14:00→14:15)
[2023-09-30] MEDS ORDERED: Albuterol/Ipratropium 3 MG-0.5 MG/3 ML Neb Soln IH SCH (14:00)
--- NOTE | 2023-09-30 15:03 | NUR ---
Machine Crater met with patient to discuss discharge planning. Patient lives at [facility] in Independent Living with his , Jack (ph#[phone]) and sees Dr. Duarte for primary care. Patient stated he is on oxygen at baseline and that he gets supplies from [employer]. Patient stated they were in a "hard spot" for the last week and that he has had difficulty with ADLS. Patient denied any current home health services. Patient is not sure at this time if he wants to return to his apartment or go to the [facility]. Patient also still considering continued care vs hospice. Patient stated he wanted to see how things go. SW met with patient's later in the hallway and she would like patient to go [facility] at time of discharge. VELASQUEZ contacted Jaymie at [facility] and faxed referral. Discharge Plan: [facility] SNF vs comfort care
--- NOTE | 2023-09-30 16:01 | NUR ---
Patient complains of SOB and difficulty breathing. O2 sat 92 % on 3L NC. Call placed to Rt for a breathing treatment.
[2023-09-30 16:20] VITALS: BP_SYST 104
[2023-09-30 20:50] VITALS: BP 121/75; PULSE 88; TEMP 98.1
[2023-09-30 21:00] VITALS: BP_SYST 120
[2023-10-01] VITALS (17 sets, daily range): BP systolic 101–128; BP diastolic 71–96; PULSE 60–138; TEMP 98.3–98.7
--- NOTE | 2023-10-01 00:07 | NUR ---
PT ALERT AND ORIENTED AT THE START OF THE SHIFT AND REMAINS IN STABLE CONDITIONS. 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 PT SEEMS TO BE IN GOOD SPIRITS THAT HIS SON CAME TO SEE HIM. PT IS [place]Y [place] AND DOES HAVE HEARING AIDES AT THE BEDSIDE. HAD AMIODARONE INFUSING PER PROTOCOL AND PROVIDER ORDERS, NO SIGN OF EXTRAVASATION, VSS. PT IS ON TELE AND IS SHOWING NSR AT THIS TIME. ALL HS MEDS GIVEN , PT IS ON 2L O2 VIA NC SAT AT 94% FALL PRECAUTIONS IN PLACE AND PT DENIES PAIN AT THIS TIME, WILL CONTINUE TO MONITOR.
--- NOTE | 2023-10-01 01:30 | NUR ---
pt remains in stable condition and is in sinus rythem with pac's. Continues to be asymptomatic, denies chest pain , dizziness, or headache. Also denies the feeling of a racing heart. Will continue to monitor.
[2023-10-01] MEDS ORDERED: dilTIAZem 25 MG/5 ML VIAL IV ONE (02:30)
--- NOTE | 2023-10-01 02:54 | NUR ---
NOTIFIED BY ALLIANCES CONSULTANT PT BACK IN AFIV RVR. UPON CHECKING PT, IS ASYMPTOMATIC. PROVIDER ADAL ENRIQUE NOTIFIED. VITAL SIGNS REPORTED AND CONDITION OF THE PATIENT. WILL BE GIVING CARDIZEM BOLUS PER PROVIDER ORDERS, SEE DOCUMETATION.
--- NOTE | 2023-10-01 06:19 | NUR ---
PT IS STABLE, RESTING IN BED NO CHANGE TO RYTHEM AT THIS TIME STILL IN AFIB RVR. PROVIDER LINDA ENRIQUE UPDATED OF STATUS. REMAINS ASYMPTOMATIC AMIODARONE RUNNING AT 17.3 MLS/HR. CALL LIGHT WITHIN REACH, EVEN UNLABORED RESPR AT THIS TIME. FALL PRECAUTIONS IN PLACE.
[2023-10-01 06:52] LABS: HEMATOCRIT 42.3 % (42.0-52.0); HEMOGLOBIN 13.9 g/dl (13.5-18.0); MEAN CELL VOLUME 90 fl (80.0-100.0); MEAN CORPUSCULAR HEMOGLOBIN 30 pg (27-31); MEAN CORPUSCULAR HGB CONC 33 g/dl (33.0-37.0); MEAN PLATELET VOLUME 9.6 fl (7.4-10.4); PLATELET COUNT 344 K/mm3 (130-400); REDCELL DISTRIBUTION WIDTH-CV 14.3 % (11.5-14.5)
--- NOTE | 2023-10-01 07:15 | NUR ---
UPON ENTERING ROOM FOR BEDSIDE SHIFT REPORT. PATIENT UPSET STATING NO ONE HAS GOTTEN HIM READY FOR HIS "PROCEDURE TOMORROW." THEN PATIENT STATED HE NEEDS THIS PROCEDURE AND NO ONE HAS CONTACTED DR RAMIREZ OR DR APARICIO. PATIENT AT THIS TIME DEMEANDED THIS RN CALL HIS SON TO COME TO THE HOSPITAL SO EVERYTHIGN CAN GET STRAIGHTENED OUT. THIS RN TOLD THE PATIENT THAT I WILL NOT BE CONTACTING HIS SON THIS EARLY IN THE MORNING AND THAT THE PATIENTS SON CAN SPEAK WITH THE MD TODAY REGARDING THE PLAN OF CARE. PATIENT AT THIS TIME STATED HE IS GOING TO PLAY HIS "TRUMP CARD" AND PROCEDED TO TELL THIS RN HOW HIS SON IS A DOCTOR. PATIENT EXPLAINED THE CURRENT PLAN STATED ABOVE, AND FOR NOW IS SATISFIED. CALL NGUYEN BEATTY PATENT, IV AMIO GTT INFUSING, O2 @ 2LNC.
[2023-10-01 07:40] LABS: CALCIUM 10.3 mg/dL (8.4-10.2); CREATININE, serum 1.3 mg/dL (0.72-1.25); POTASSIUM 4.3 mEq/L (3.5-4.5)
[2023-10-01 07:53] LABS: LYMPHOCYTE 7 % (20.0-51.0); NEUTROPHILS 88 % (42.0-75.2); PLATELET ESTIMATE NORMAL (NORMAL)
[2023-10-01] MEDS ORDERED: dexAMETHasone 10 MG/ML VIAL IV SCH ×2 (09:00→21:00)
[2023-10-01] MEDS ORDERED: Budesonide Neb Susp 0.5 MG/2 ML AMP IH SCH (09:00)
[2023-10-01] MEDS ORDERED: NS 1,000 ML IV ONE (09:15)
[2023-10-01] MEDS ORDERED: dilTIAZem 30 MG TAB PO SCH (09:30)
[2023-10-01] MEDS ORDERED: Amiodarone 200 MG TAB PO SCH (11:30)
--- NOTE | 2023-10-01 11:35 | NUR ---
MD CALLED THAT PATIENT HR IS SUSTAINING AT 130-140S BPM, PATIENT BP 110/71. PER MD THIS RN TO ADMINISTER ORAL AMIODARONE 400MG AND CARDIZEM 30MG NOW, AND DISCONTINUE PATIENT AMIODARONE GTT NOW. SEE EMAR.
[2023-10-01] MEDS ORDERED: hydrOXYzine HCl 25 MG TAB PO PRN (16:45)
--- NOTE | 2023-10-01 16:45 | NUR ---
CALLED. PATIENT APPEARS TO HAVE SOME ANXIETY WHEN WAKING UP FROM SLEEPING. PATIENT IN AGREEMENT HE DOES FEEL ANXIOUS WHEN HE FIRST AROUSES AND IS IN AGREEMENT THAT AN ANTIANXIETY MEDICATION MAY HELP HIM TO CALM DOWN AND POSSIBLY REST EASIER. ADELINA RECIEVED. SEE EMAR FOR DETAILS.
--- NOTE | 2023-10-01 18:36 | NUR ---
NIGHT ACCOUNTANT CONTROLLER NOTIFIED PATIENT IS NO BACK IN AFIB RVR WITH HR IN THE 120S-130S SUSTAINING. PATINET DENIES ANY NEW COMPLAINTS OR INCREASE IN SOB. ACCOUNTANT CONTROLLER COMING TO FLOOR TO EVAL PATIENT AND PLACE ORDERS.
[2023-10-01] MEDS ORDERED: Metoprolol Tartrate 5 MG/5 ML VIAL IV ONE (19:00)
[2023-10-01] MEDS ORDERED: Digoxin 0.25 MG/ML 2 ML VIAL IV SCH (19:00)
--- NOTE | 2023-10-01 19:20 | NUR ---
PATIENT HR AFTER IV METOPROLOL AND PO AMIODARONE CAME DOWN TO 70. PATIENT NOW IN SINUS RYTHM WITH A HR OF 63. NIGHT INVESTMENT RECOVERY TECHNICIAN LINDA NOTIFIED. IV DIG ORDER PLACED ON HOLD. REPORT GIVEN TO PATIENT NIGHT RN.
[2023-10-01] MEDS ORDERED: Melatonin 3 MG TAB PO SCH (21:00)
--- NOTE | 2023-10-01 23:45 | NUR ---
Notified by [facility] that pt went into [facility], pt has scheduled cardizem this was given. Pt is asymptomatic, resting in bed.
[2023-10-02 00:09] VITALS: BP 120/79; PULSE 82; TEMP 98.5
[2023-10-02 01:00] VITALS: BP_SYST 120
--- NOTE | 2023-10-02 03:06 | NUR ---
PT ALERT AND ORIENTED X3. AT THE SHIFT CHANGE HE WENT INTO A FIB RVR. ORDERS GIVEN TO DAY SHIFT RN. PT SUCCESSFULLY CONVERTED TO NSR. PT VS WNL AND IS ASYMPTOMATIC. ALL HS MEDS GIVEN, SHIFT ASSESSMENT COMLETE. INDWELLING CATHETER TO DEPENDENT DRAINAGE PATENT, DENIES ANY PAIN THUS FAR, CALL LIGHT WITHIN REACH.
[2023-10-02 03:48] VITALS: BP 113/74; PULSE 64; TEMP 98.1
[2023-10-02 05:00] VITALS: BP_SYST 113
[2023-10-02 06:31] LABS: HEMATOCRIT 44.1 % (42.0-52.0); HEMOGLOBIN 14.1 g/dl (13.5-18.0); MEAN CELL VOLUME 90 fl (80.0-100.0); MEAN CORPUSCULAR HEMOGLOBIN 29 pg (27-31); MEAN CORPUSCULAR HGB CONC 32 g/dl (33.0-37.0); MEAN PLATELET VOLUME 9.7 fl (7.4-10.4); PLATELET COUNT 316 K/mm3 (130-400); RED BLOOD COUNT 4.88 M/mm3 (4.20-5.60); REDCELL DISTRIBUTION WIDTH-CV 14.3 % (11.5-14.5)
[2023-10-02 06:53] LABS: CALCIUM 10.3 mg/dL (8.4-10.2); CREATININE, serum 1.16 mg/dL (0.72-1.25); POTASSIUM 4.6 mEq/L (3.5-4.5)
[2023-10-02 07:08] VITALS: BP 130/81; PULSE 75; TEMP 98.1
[2023-10-02 07:46] LABS: BAND 1 % (0-10); LYMPHOCYTE 4 % (20.0-51.0); NEUTROPHILS 93 % (42.0-75.2); PLATELET ESTIMATE NORMAL (NORMAL)
--- NOTE | 2023-10-02 08:45 | NUR ---
PATIENT AND HIS WOULD LIKE HIM TO BE EDUCATED ON PROGNOSIS AND DISCUSS POSSIBILITY OF INITATING HOSPICE AND COMFORT CARE. PATIENT VERBALIZED FEELINGS OF NO LONGER WANTING TO "LIVE LIKE THIS". MD NOTIFIED.
[2023-10-02] MEDS ORDERED: dilTIAZem CD (24-HR) 120 MG CAP PO SCH (09:00)
[2023-10-02] MEDS ORDERED: LORazepam 1 MG TAB PO PRN (09:30)
[2023-10-02] MEDS ORDERED: Scopolamine 1 MG Delivered 3-Day PATCH TD SCH (09:30)
[2023-10-02] MEDS ORDERED: LORazepam 2 MG/ML 1 ML VIAL IV PRN (09:30)
[2023-10-02] MEDS ORDERED: Atropine 1% Ophth Soln 2 ML BOTTLE SL PRN (09:30)
[2023-10-02] MEDS ORDERED: Haloperidol Lactate 5 MG/ML VIAL IV PRN (09:30)
[2023-10-02] MEDS ORDERED: Morphine 4 MG/ML VIAL IV PRN (09:30)
[2023-10-02] MEDS ORDERED: Morphine Oral Concentrate 20 MG/ML UD SL PRN (09:30)
--- NOTE | 2023-10-02 10:00 | NUR ---
PATIENT ASLEEP, RESTING COMFORTABLY. RESPIRATIONS WITHIN NORMAL LIMITS, PER PATIENT DO NO WAKE HIM. CALL LIGHT WITHIN REACH.
[2023-10-02] MEDS ORDERED: Scopolamine 1 MG Delivered 3-Day PATCH TD PRN (13:00)
--- NOTE | 2023-10-02 13:56 | NUR ---
patient awake and alert sitting up in bed. 2 family members at bedside. patient appears happy, is currently eating chocolate, he denies any needs complaint or pain at this time.. call light within reach. fall precautions in place.
--- NOTE | 2023-10-02 15:14 | NUR ---
VELASQUEZ faxed clinical to [facility] for hospice care; spoke with Jaymie she received fax. Information with be reviewed with [facility] physician on Tuesday on hospice care and follow up with staff and family.
--- NOTE | 2023-10-03 03:23 | NUR ---
THROUGHOUT THIS SHIFT THIS PT REMAINS COMFORTABLE. IN A PLEASANT MOOD, DIDNT EAT MUCH SUPPER. CEDILLO CATHETER TO DEPENDENT DRAINAGE, CLEAR YONI URINE.CALL LIGHT WITHIN REACH.
[2023-10-03] MEDS ORDERED: Loratadine 10 MG TAB PO SCH (09:00)
--- NOTE | 2023-10-03 09:34 | NUR ---
Patient awake, alert and oriented. at the bedside. Shortness of breath at rest, occasional pain with movement, thinks he may be a little constipated. Educated on PRNs available to patient and uses of each medication. Requests morphine, PRN given as ordered. Repositioned per request. Bed in lowest position with call light within reach. Patient knowledgeable of prognosis, agreeable with plan to leave today.
[2023-10-03] MEDS ORDERED: PACERONE400 MG PO (09:54)
[2023-10-03] MEDS ORDERED: ROXANOL 20MG20 MG/ML SL (09:55)
[2023-10-03] MEDS ORDERED: SYSTANE 0.4%-0.1 SOL OU (09:55)
[2023-10-03] MEDS ORDERED: TRANSDERM-0.5 MG/21 TD (09:55)
[2023-10-03] MEDS ORDERED: ATIVAN 1MG T1 MG/TAB PO (09:55)
[2023-10-03] MEDS ORDERED: DULCOLAX S10 MG/SUPP RC (09:55)
--- NOTE | 2023-10-03 10:38 | NUR ---
Report given to Eli at [facility]. All questions answered.
--- NOTE | 2023-10-03 11:23 | NUR ---
Pt discharged to [facility], report called prior to transportation. Transported via EMS, all belongings sent with patient.
--- NOTE | 2023-10-03 14:22 | NUR ---
Commissioner Of Relocation Services contacted Jaymie at [facility] and faxed clinical updates. Jaymie advised they can accept today and will contact , Jack to discuss financial arrangements. VELASQUEZ met with Jack who is agreeable to patient discharging to [facility] today and is going to head over there to do paperwork. MACO and Jack feel patient needs EMS transport as he cannot safely sit up in a wheelchair for transport. VELASQUEZ set up transport with [facility] for 1100. VELASQUEZ faxed discharge orders to Jaymie at [facility]. Discharge Plan: [facility] on comfort care
== END 2023-10-03 11:15 | disposition hospice, inpatient (51) | DRG 190 ==
LOC: COL.ER 13:27 → MEDICAL 16:13 → ICU 19:13 → MEDICAL 20:05
PROVIDERS: Nurse Practitioner Primary Care; ADMIT Internal Medicine
DX: J44.1 Chronic obstructive pulmonary disease with (acute) exacerbation (principal); I21.A1 Myocardial infarction type 2; J96.11 Chronic respiratory failure with hypoxia; N17.9 Acute kidney failure, unspecified; I48.0 Paroxysmal atrial fibrillation; E78.5 Hyperlipidemia, unspecified; D72.829 Elevated white blood cell count, unspecified; E83.52 Hypercalcemia; Z51.5 Encounter for palliative care; T78.40XA Allergy, unspecified, initial encounter; Z66 Do not resuscitate; J84.10 Pulmonary fibrosis, unspecified; Z20.822 Contact with and (suspected) exposure to COVID-19; Z85.72 Personal history of non-Hodgkin lymphomas; Z90.89 Acquired absence of other organs; Z99.81 Dependence on supplemental oxygen; Z79.01 Long term (current) use of anticoagulants; Z87.891 Personal history of nicotine dependence; Z79.899 Other long term (current) drug therapy; Z23 Encounter for immunization
CPT/HCPCS: A9270; J0282; J0360; J1100; J2270; J2919; J7030; J7040; J7060